=== PATIENT | female | born 1985 | race Caucasian/White ===

== ENCOUNTER 2016-09-14 08:24 | Day surgery (SDC) | payer MEDICAID ==
[~2016-09-14 08:24] MED LIST: PROPOFOL INJ 200 MG/20 ML VIAL IV ONE
[2016-09-14 09:46] VITALS: BP 99/75
--- NOTE | 2016-09-14 12:43 | Operative Report ---
Operative Report DATE OF SURGERY: 09/14/16 Operative Report: The risks, benefits and alternatives of the procedure including risks of bleeding, perforation requiring surgery are explained to the patient detail and informed consent was obtained. Patient was taken back to the endoscopy suite and placed in the left, lateral decubital position. Timeout was called. A rectal examination was done. An Olympus video scope was inserted into the patient's rectum. The scope was then carefully guided all the way to the cecum. The cecum was identified by the usual anatomical landmarks of the ileocecal valve as well as the appendiceal office. Photodocumentation is obtained. Prep is good. The scope was then sequentially pulled back via the various segments of the colon including the ascending colon, hepatic flexure, transverse colon, splenic flexure, descending colon and finding to the rectosigmoid portions of the colon. Retroflexion maneuver was performed. PREOPERATIVE DIAGNOSIS: Strong family history of colon cancer; colon cancer in mother and grandmother. One relative under the age of 50. POSTOPERATIVE DIAGNOSIS: Mild right-sided inflammation status post biopsy. Could have been better ,would perform surveillance next year. OPERATION: Colonoscopy with biopsy SURGEON: BELINDA ELKINS ANESTHESIA: LMAC TISSUE REMOVED OR ALTERED: colon Specimen of pain rule out microscopic, collagenous, lymphocytic colitis. COMPLICATIONS: None. ESTIMATED BLOOD LOSS: None. INTRAOPERATIVE FINDINGS: No masses, AVMs, diverticulosis noted. Mild internal hemorrhoids. PROCEDURE: Patient tolerated the procedure well. No immediate postprocedure complications are noted. Patient discharged in good condition. Discharge date 09/14/2016. Discharge diet: Regular. Discharge activity: Regular. 2-3 week follow-up to discuss findings. Surveillance colonoscopy next year. We will await biopsy. Patient is instructed to call the office or proceed to the emergency room should there be any further problems or questions.
== END 2016-09-14 09:40 | disposition home or self-care (01) ==
LOC: END 08:24
PROVIDERS: ATTEND Internal Medicine Gastroenterology
PROC: 0DBF8ZX Excision of Right Large Intestine, Via Natural or Artificial Opening Endoscopic, Diagnostic (ICD-10-PCS; principal; 2016-09-14 09:30)
DX: Z80.0 Family history of malignant neoplasm of digestive organs (principal); K52.9 Noninfective gastroenteritis and colitis, unspecified; F17.210 Nicotine dependence, cigarettes, uncomplicated; Z79.899 Other long term (current) drug therapy; Z79.1 Long term (current) use of non-steroidal anti-inflammatories (NSAID)
CPT/HCPCS: 45380; 88305 ×2; J2704; 810

== ENCOUNTER 2017-03-26 17:31 | Emergency (ER) | payer MEDICAID ==
[2017-03-26] MEDS ORDERED: IBUPROFEN 600 MG TABLET PO ONE (17:50)
--- NOTE | 2017-03-26 18:12 | RADIOLOGY REPORT (SQ) ---
EXAM DESCRIPTION: ANKLE RIGHT COMPLETE COMPLETED DATE/TIME: 03/26/2017 6:02 pm REASON FOR STUDY: pain and injury COMPARISON: None. NUMBER OF VIEWS: Three views. TECHNIQUE: AP, lateral, and oblique radiographic images acquired of the right ankle. LIMITATIONS: None. FINDINGS: MINERALIZATION: Normal. BONES: No acute fracture or dislocation. No worrisome bone lesions. JOINTS: No effusions. SOFT TISSUES: No soft tissue swelling. No foreign body. OTHER: No other significant finding. IMPRESSION: NO RADIOGRAPHIC EVIDENCE OF ACUTE INJURY. TECHNICAL DOCUMENTATION: JOB ID: [id number] [place]-72 2010 [employer]- All Rights Reserved
--- NOTE | 2017-03-26 18:14 | RADIOLOGY REPORT (SQ) ---
EXAM DESCRIPTION: FOOT RIGHT COMPLETE COMPLETED DATE/TIME: 03/26/2017 6:02 pm REASON FOR STUDY: pain and injury COMPARISON: None. NUMBER OF VIEWS: Three views. TECHNIQUE: AP, lateral and oblique radiographic images acquired of the right foot. LIMITATIONS: None. FINDINGS: MINERALIZATION: Normal. BONES: No acute fracture or dislocation. No worrisome bone lesions. JOINTS: No effusions. SOFT TISSUES: No soft tissue swelling. No foreign body. OTHER: No other significant finding. IMPRESSION: NO RADIOGRAPHIC EVIDENCE OF ACUTE INJURY. TECHNICAL DOCUMENTATION: JOB ID: [id number] [place]-72 2010 [employer]- All Rights Reserved
--- NOTE | 2017-03-26 18:20 | ER Document Report ---
ED Extremity Problem, Lower - General Chief Complaint: Ankle Injury Stated Complaint: RIGHT FOOT INJURY Time Seen by Provider: 03/26/17 17:47 Mode of Arrival: Wheelchair Information source: Patient Notes: 31-year-old female presents to ED for complaint of pain to the right ankle. She states she was working in her yard but not been activity seen when she stepped into a hole twisting her ankle causing her pain whenever she tries to put her foot onto the floor. She states she smokes but does not drink or do any kind of drugs. She states she does work she lives with her . TRAVEL OUTSIDE OF THE [place] IN LAST 30 DAYS: No - HPI Patient complains to provider of: Injury, Pain. No: Swelling Location: Ankle Occurred: Yesterday Where: Home, Outdoors Onset/Duration: Gradual Quality of pain: Sharp, Throbbing Severity: Moderate Pain Level: 3 Context: Twisted, Wearing shoes Recent injury: Yes Associated symptoms: Painful ambulation Exacerbated by: Movement, Walking Relieved by: Nothing - Related Data Allergies/Adverse Reactions: tramadol [Tramadol] Allergy (Intermediate, Verified 03/26/17 17:32) Hives Past Medical History - General Information source: Patient - Social History Smoking Status: Current Every Day Smoker Cigarette use (# per day): Yes Chew tobacco use (# tins/day): No Smoking Education Provided: Yes - 3 minutes Frequency of alcohol use: None Drug Abuse: None Lives with: Family Family History: Reviewed & Not Pertinent Patient has suicidal ideation: No Patient has homicidal ideation: No - Past Medical History Cardiac Medical History: Reports: None Pulmonary Medical History: Reports: Hx Bronchitis EENT Medical History: Reports: None Neurological Medical History: Reports: Hx Migraine Endocrine Medical History: Reports: None Renal/ Medical History: Reports: None Malignancy Medical History: Reports: None GI Medical History: Reports: None Musculoskeltal Medical History: Reports None Skin Medical History: Reports None Psychiatric Medical History: Reports: None Traumatic Medical History: Reports: None Infectious Medical History: Reports: None Surgical Hx: Negative Past Surgical History: Reports: None - Immunizations Immunizations up to date: Yes Hx Diphtheria, Pertussis, Tetanus Vaccination: Yes Review of Systems - Review of Systems Constitutional: No symptoms reported EENT: No symptoms reported Cardiovascular: No symptoms reported Respiratory: No symptoms reported Gastrointestinal: No symptoms reported Genitourinary: No symptoms reported Female Genitourinary: No symptoms reported Musculoskeletal: Joint pain Skin: No symptoms reported Hematologic/Lymphatic: No symptoms reported Neurological/Psychological: No symptoms reported Physical Exam - Vital signs Vitals: Temp Pulse BP Pulse Ox 98.6 F 83 119/69 100 03/26/17 17:36 03/26/17 17:36 03/26/17 17:36 03/26/17 17:36 Course - Re-evaluation Re-evalutation: 03/26/17 20:07 X-ray discussed with patient and written report of the x-ray given the patient to follow-up with orthopedics. Jarret wrap applied to the ankle and patient was treated with ibuprofen and given a prescription for ibuprofen. Patient is instruction on elevation and ice of her ankle. - Vital Signs Vital signs: Temp Pulse Resp BP Pulse Ox 97.9 F 60 20 95/77 L 95 03/26/17 19:04 03/26/17 19:04 03/26/17 19:04 03/26/17 19:04 03/26/17 19:04 - Diagnostic Test Radiology reviewed: Image reviewed, Reports reviewed Procedures - Immobilization Right Ankle Time completed: 19:00 Pre-Proc Neuro Vasc Exam: Normal Immobilizer type: Jarret wrap Performed by: PCT Post-Proc Neuro Vasc Exam: Normal Alignment checked and good: Yes Discharge - Discharge Clinical Impression: Right ankle sprain Qualifiers: Encounter type: initial encounter Involved ligament of ankle: unspecified ligament Qualified Code(s): S93.401A - Sprain of unspecified ligament of right ankle, initial encounter Condition: Stable Disposition: HOME, SELF-CARE Additional Instructions: SPRAINED ANKLE: Your sprained ankle results from stretching or tearing of the ligaments which support the ankle. This usually results from twisting the foot inward and under. The ligaments will require time and protection in order to heal properly. Many ankle sprains are quite disabling, and should be taken seriously. The usual treatment for an ankle sprain is cold packs; protection with tape , splints, or wraps; elevation; and staying off the ankle for at least a day. As the ankle improves, you can walk IF it's not painful to bear weight. Sports are best postponed until healing is complete. More serious sprains usually require strengthening exercises after early healing. Your physician has assessed the seriousness of the ligament injury to your ankle. However, the treatment may change, depending on how your ankle progresses. If further exams were recommended, it is important that you follow through. Call the doctor if your foot becomes numb, painful, or severely swollen. JARRET WRAP: A compression dressing (jarret wrap) has been placed. This helps hold the area still. It limits swelling and internal bleeding. The wrap should be comfortably snug -- not tight. You should feel a sense of pressure, but not severe pain under the wrap. Unless the physician tells you otherwise, you can adjust the wrap for comfort. If the wrap causes symptoms suggesting it's too tight -- uncomfortable pressure, swelling or discoloration beyond the wrap, numbness, or severe pain - - you must loosen the wrap. If these symptoms don't resolve promptly, return for re-evaluation. USE OF CRUTCHES: The doctor has recommended that you not bear weight at this time. You will need to use crutches. Adjust the crutches so the tops come to about two inches under the armpit while you are standing upright. Use your hands -- not your armpits -- to support your weight. To get into a chair, support yourself with one crutch on the injured side. Hold the chair with the other hand, then lower yourself while putting all your weight on the good leg. Going up stairs is `good leg up, step up, then bring up crutches and bad leg.' Down stairs is `bad leg and crutches down, then bring good leg down.' If you develop numbness or swelling in an arm or hand, you are using the crutches incorrectly. Return if you are having any problems with the crutches. ICE & ELEVATION: Apply ice packs frequently against the painful area. Many different schedules are recommended, such as "20 minutes on, 20 minutes off" or "one hour ice, two hours rest." If you need to work, you may need to go longer between ice treatments. You should plan to have the area ice packed AT LEAST one- fourth of the time. The ice should be applied over the wrap, tape, or splint, or over a layer of cloth -- not directly against the skin. Some ice bags have a built-in cloth and can be put directly on the skin. Your injured part should be elevated as much as possible over the next 48 hours. Try to keep the injury above the level of the heart. Avoid use of the injured area. Elevation and rest will decrease the swelling. USE OF [id number] IBUPROFEN: Ibuprofen (Advil, Nuprin, Medipren, Motrin IB) is a medication for fever and pain control. In addition, it has anti- inflammatory effects which may be beneficial, especially in the treatment of injuries. It's best to take ibuprofen with food. Persons with ulcer disease or allergy to aspirin should notify their physician of this before taking ibuprofen. Ibuprofen can be given every four to six hours, for a total of four doses daily. Age Pain or fever dose Antiinflammatory dose 6-8 yr 200 mg (1 tab) 200 mg (1 tab) 9-11 yr 200 mg (1 tab) 200-400 mg (1-2 tab) 11-14 yr 200-400 mg (1-2 tab) 400 mg (2 tab) 15-adult 400 mg (2 tab) 600 mg (3 tab) FOLLOW-UP CARE: If you have been referred to a physician for follow-up care, call the physician s office for an appointment as you were instructed or within the next two days. If you experience worsening or a significant change in your symptoms, notify the physician immediately or return to the Emergency Department at any time for re-evaluation. Prescriptions: Ibuprofen 600 mg PO Q8HP PRN #20 tablet PRN Reason: Forms: Smoking Cessation Education, Return to Work Referrals: LUKE BAIG PA-C [Primary Care Provider] - Follow up as needed TORY MIRANDA DO [ACTIVE STAFF] - Follow up as needed
[2017-03-26 19:05] VITALS: BP 95/77
== END 2017-03-26 19:04 | disposition home or self-care (01) ==
LOC: ER 17:31
DX: S93.401A Sprain of unspecified ligament of right ankle, initial encounter (principal); M25.571 Pain in right ankle and joints of right foot; X50.1XXA Overexertion from prolonged static or awkward postures, initial encounter
CPT/HCPCS: 99283; 73610; 73630; J3490

== ENCOUNTER 2017-07-17 16:15 | Emergency (ER) | payer MEDICAID ==
[2017-07-17] MEDS ORDERED: CLINDAMYCIN HCL 150 MG CAPSULE PO ONE (17:13)
[2017-07-17] MEDS ORDERED: HYDROCODONE/ACETAMINOPHEN 5-325 MG TABLET PO ONE (17:13)
--- NOTE | 2017-07-17 17:18 | ER Document Report ---
ED ENT - General Chief Complaint: Facial Swelling Stated Complaint: SWOLLEN MOUTH Time Seen by Provider: 07/17/17 16:42 Mode of Arrival: Ambulatory Information source: Patient Notes: 32-year-old female patient with right face pain and swelling since yesterday. She has known dental disease. There is no fever. She has a long history of poor dentition and dental caries and ER visits for pain related issues. TRAVEL OUTSIDE OF THE [place] IN LAST 30 DAYS: No - Related Data Allergies/Adverse Reactions: tramadol [Tramadol] Allergy (Intermediate, Verified 07/17/17 16:47) Hives Past Medical History - General Information source: POA - Power of Medical Donation Professional, [facility] Records - Social History Smoking Status: Current Every Day Smoker Cigarette use (# per day): Yes - /12 PPD Chew tobacco use (# tins/day): No Smoking Education Provided: Yes - 3 minutes spent on smoking cessation counseling Frequency of alcohol use: None Drug Abuse: None Occupation: Unemployed Lives with: Family, Spouse/Significant other Family History: Reviewed & Not Pertinent Pulmonary Medical History: Reports: Hx Bronchitis Neurological Medical History: Reports: Hx Migraine Surgical Hx: Negative - Immunizations Immunizations up to date: Yes Hx Diphtheria, Pertussis, Tetanus Vaccination: Yes Review of Systems - Review of Systems Constitutional: No symptoms reported EENT: Dental problem Cardiovascular: No symptoms reported Respiratory: No symptoms reported Gastrointestinal: No symptoms reported Genitourinary: No symptoms reported Female Genitourinary: Last menstrual period - May 2017, Musculoskeletal: No symptoms reported Skin: No symptoms reported Hematologic/Lymphatic: No symptoms reported Neurological/Psychological: No symptoms reported Physical Exam - Vital signs Interpretation: Normal - General General appearance: Appears well, Alert In distress: Mild - HEENT Head: Normocephalic, Atraumatic Eyes: Normal Pupils: PERRL Mouth/Lips: Other - Severe dental decay. Right lower second molar is broken off and tender to touch. There is gum edema without obvious abscess seen. There is tender swelling over the right proximal mandible. - Respiratory Respiratory status: No respiratory distress Breath sounds: Rhonchi - Cardiovascular Rhythm: Regular - Abdominal Inspection: Normal - Back Back: Normal - Extremities General upper extremity: Normal inspection General lower extremity: Normal inspection - Neurological Neuro grossly intact: Yes - Psychological Associated symptoms: Normal affect, Normal mood - Skin Skin Temperature: Warm Skin Moisture: Dry Skin Color: Normal Course - Re-evaluation Re-evalutation: 07/17/17 17:43 Review of the [facility] shows the last time she filled a narcotic prescription was in 2013, and that was from a local oral surgeon. Discharge - Discharge Clinical Impression: Infected dental caries Condition: Stable Disposition: HOME, SELF-CARE Instructions: Dentist Additional Instructions: Dental Infection or Abscess: You have an infection, perhaps an abscess (pus formation) of the gum around one of your teeth, which is probably decayed. If there is an abscess, it may drain on its own or it may need to be opened or lanced. Severe swelling or drainage around a tooth usually means a deep dental abscess which usually requires evaluation and treatment by a dentist or oral surgeon. Antibiotics may be prescribed while awaiting dental treatment. If you develop high fever with chills, worsening pain, or increasing swelling in the area, see a dentist or oral surgeon immediately or return to the Emergency Department immediately. Take medications as prescribed. Take ibuprofen 600 mg every 8 hours. Use warm soaks to your jaw. Follow-up with a local dentist this week. RETURN TO THE EMERGENCY ROOM IF ANY NEW OR WORSENING SYMPTOMS. Prescriptions: Clindamycin HCl 300 mg PO QID #28 capsule Hydrocodone/Acetaminophen [Hydrocodon-Acetaminophen 5-325] 1 each PO ASDIR PRN # 12 tablet PRN Reason: Referrals: LUKE BAIG PA-C [Primary Care Provider] - Follow up as needed
== END 2017-07-17 17:39 | disposition home or self-care (01) ==
LOC: ER 16:15
DX: K02.9 Dental caries, unspecified (principal); K04.7 Periapical abscess without sinus; R22.0 Localized swelling, mass and lump, head; R51 Headache; F17.210 Nicotine dependence, cigarettes, uncomplicated
CPT/HCPCS: 99406; 99283; J3490

== ENCOUNTER 2017-11-23 19:14 | Emergency (ER) | payer OTHER, MEDICAID ==
[2017-11-23 19:41] VITALS: BP 118/79
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
[2017-11-23] MEDS ORDERED: OXYCODONE-ACETAMINOPHEN 5-325 MG TABLET PO ONE (21:19)
[2017-11-23 22:11] LABS: ABSOLUTE LYMPHOCYTES (AUTO) 1.3 10^3/uL (0.5-4.7); ABSOLUTE MONOCYTES (AUTO) 0.7 10^3/uL (0.1-1.4); ABSOLUTE NEUT (AUTO) 14.7 10^3/uL (1.7-8.2); BASOPHILS % (AUTO) 0.2 % (0-2); EOSINOPHILS % (AUTO) 0.1 % (0-6); HEMATOCRIT 29.2 % (36.0-47.0); HEMOGLOBIN 9.9 g/dL (12.0-15.5); LYMPHOCYTES % (AUTO) 7.6 % (13-45); MEAN CORPUSCULAR HEMOGLOBIN 28.9 pg (27.0-33.4); MEAN CORPUSCULAR VOLUME 85 fl (80-97); MONOCYTES % (AUTO) 4.3 % (3-13); PLATELET COUNT 227 10^3/uL (150-450); RED BLOOD COUNT 3.43 10^6/uL (3.72-5.28); SEGMENTED NEUTROPHILS % (AUTO) 87.8 % (42-78); TOTAL CELLS COUNTED % (AUTO) 100 %; WHITE BLOOD COUNT 16.7 10^3/uL (4.0-10.5)
[2017-11-23 22:18] LABS: INTERNATIONAL RATION (INR) 0.99; PARTIAL THROMBOPLASTIN TIME 25.2 SEC (23.5-35.8); PROTHROMBIN TIME 13.6 SEC (11.4-15.4)
[2017-11-23 22:36] LABS: ALANINE AMINOTRANSFERASE 23 U/L (9-52); ALBUMIN 3.3 g/dL (3.5-5.0); ALKALINE PHOSPHATASE 142 U/L (38-126); ANION GAP 11 (5-19); ASPARTATE AMINO TRANSFERASE 13 U/L (14-36); BILIRUBIN,DIRECT 0.2 mg/dL (0.0-0.4); BILIRUBIN,TOTAL 0.3 mg/dL (0.2-1.3); BLOOD UREA NITROGEN 6 mg/dL (7-20); CALCIUM 8.9 mg/dL (8.4-10.2); CARBON DIOXIDE 18 mmol/L (22-30); CHLORIDE 110 mmol/L (98-107); GLUCOSE 101 mg/dL (75-110); POTASSIUM 3.7 mmol/L (3.6-5.0); SODIUM 138.8 mmol/L (137-145); TOTAL PROTEIN 6.2 g/dL (6.3-8.2)
[2017-11-23 23:35] LABS: APPEARANCE,URINE CLEAR; BILIRUBIN,URINE NEGATIVE (NEGATIVE); COLOR,URINE YELLOW; GLUCOSE, URINE NEGATIVE (NEGATIVE); KETONES,URINE 20 mg/dL (NEGATIVE); LEUKOCYTE ESTERASE,URINE TRACE (NEGATIVE); NITRITE,URINE NEGATIVE (NEGATIVE); PROTEIN,URINE 100 mg/dL (NEGATIVE); URINE SPECIFIC GRAVITY 1.013; UROBILINOGEN,URINE NEGATIVE mg/dL (<2.0)
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
== END 2017-11-24 01:13 | disposition home or self-care (01) ==
LOC: ER 19:14
DX: S63.91XA Sprain of unspecified part of right wrist and hand, initial encounter (principal); M25.531 Pain in right wrist; V87.7XXA Person injured in collision between other specified motor vehicles (traffic), initial encounter
CPT/HCPCS: 36415; 76805; 80053; 81001; 85025; 85610; 85730; 99284

== ENCOUNTER 2018-01-27 16:36 | Outpatient (CLI) | payer MEDICAID ==
[2018-01-27 17:21] LABS: APPEARANCE,URINE SLIGHTLY-CLOUDY; BILIRUBIN,URINE NEGATIVE (NEGATIVE); COLOR,URINE YELLOW; GLUCOSE, URINE NEGATIVE (NEGATIVE); KETONES,URINE NEGATIVE (NEGATIVE); LEUKOCYTE ESTERASE,URINE LARGE (NEGATIVE); NITRITE,URINE NEGATIVE (NEGATIVE); PROTEIN,URINE 30 mg/dL (NEGATIVE); URINE SPECIFIC GRAVITY 1.012; UROBILINOGEN,URINE NEGATIVE mg/dL (<2.0)
[2018-01-27] MEDS: RINGERS SOLUTION,LACTATED 1,000 ML IV PRN ×2 (17:30→18:31)
[2018-01-27 17:32] LABS: URINE AMPHETAMINES SCREEN NEGATIVE; URINE BARBITURATES SCREEN NEGATIVE; URINE BENZODIAZEPINES SCREEN NEGATIVE; URINE COCAINE SCREEN NEGATIVE; URINE MARIJUANA (THC) SCREEN NEGATIVE; URINE PHENCYCLIDINE SCREEN NEGATIVE
[2018-01-27 17:39] LABS: URINE METHADONE SCREEN UNCONFIRMED POSITIVE
--- NOTE | 2018-01-27 17:40 | L&D Progress Notes ---
PROGRESS NOTES Datetime Report Generated by CPN: 01/27/2018 17:40 PROGRESS NOTE Impression Other: Low FABIANA Procedures- Other: Monitor/Actin Prom Plan Other: Repeat FABIANA Informed Consent Obtained: Risks, Benefits and Alternatives Discussed Vital Signs : Reviewed; Within Normal Limits Comment: Pt sent to L_D secondary to FABIANA 1.5 cm and Positive Nitrizine. Actin Prom negative. Bedside US showed very low FABIANA. Fetus in Breech position. Pt adamant about not having a C/S today. She stated that she had a her other (2) children naturally. I explained to her that it is very unlikely that the fetus will convert to a cephalic position without adequate amniotic fluid. Her NST is reactive and she is archie irregularly. I will give her some IV fluids and repeat the FABIANA. FETUS A FHR - Baseline: 130s Monitoring: External US Variability: Moderate 6-25bpm Accelerations: 15X15 Decelerations: None FHR Category: Category I : 36.0 SIGNATURE SIGNATURE: [id number] Signature: with User ID: [email or web address]
--- NOTE | 2018-01-28 00:16 | RADIOLOGY REPORT (SQ) ---
ULTRASOUND OBSTETRICS CLINICAL HISTORY: Repeat FABIANA. History of low FABIANA. COMPLETED DATE/TME: 01/27/2018 23:30 COMPARISON: 11/23/2017 TECHNIQUE: Transabdominal ultrasound of the maternal pelvis for evaluation of the fetus was done. FINDINGS: There is a single viable intrauterine gestation in breech position. A heart rate of 139 beats/minute is noted. The average ultrasound gestational age is 35 weeks and three days. Expected date of confinement is 02/28/2018. biometry is as follows: Biparietal diameter, 8.53 cm, 34 weeks and three days Head circumference, 31.53 cm, 35 weeks and three days Abdominal circumference, 31.81 cm, 35 weeks and five days Femur length, 7.06 cm, 36 weeks and one days Estimated weight is 2737 g +/- 405 g (six lb one oz +/- 14 oz) placing the patient at the 41 percentile for estimated weight. The amniotic fluid index is 1.2 centimeters, suggestive of severe oligohydramnios No detailed evaluation of the anatomy was done The placenta is fundal in position, grade two and without any evidence of placenta previa/placenta abruption. The maternal cervical length is 3.9 centimeters. Internal os of the cervix is closed. IMPRESSION: The amniotic fluid index is 1.2 centimeters, suggestive of severe oligohydramnios. Single viable intrauterine gestation in breech presentation with intact fundal placenta
--- NOTE | 2018-01-28 00:40 | L&D Progress Notes ---
PROGRESS NOTES Datetime Report Generated by CPN: 01/28/2018 00:40 PROGRESS NOTE Impression Other: Oligohydramnios Procedures- Other: Monitor Plan Other: IV fluids, rest, repeat FABIANA Vital Signs : Reviewed; Within Normal Limits Comment: Pt here since approx 1700 secondary to oligohydramnios. She was sent from the office with an FABIANA 1.5 cm. Fetus in Breech position. NST reactive. Pt given IV fluids and repeat FABIANA 4 hrs later shows FABIANA 1.2 cm. Pt states that she will not undergo a C/S at this time. She states that she has good movement. She would like to have a vaginal delivery like her others. I explained to her that her baby can and the likelihood of the baby turning is very low. She states that she understands this and that she will keep her appt on Wednesday. If she has to have a C/S after the appt, she will. Pt encouraged/instructed to return if movement decreases. Pt signed the AMA form. FETUS A FHR - Baseline: 120s Monitoring: External US Accelerations: 15X15 Decelerations: None FHR Category: Category I : 36.1 FETUS C SIGNATURE: [id number] Signature: with User ID: [email or web address]
== END 2018-01-28 00:39 | disposition home or self-care (01) ==
LOC: LC 16:36
PROVIDERS: ATTEND Obstetrics & Gynecology
PROC: 4A1HXCZ Monitoring of Products of Conception, Cardiac Rate, External Approach (ICD-10-PCS; principal; 2018-01-27)
DX: O41.03X0 Oligohydramnios, third trimester, not applicable or unspecified (principal); Z3A.36 36 weeks gestation of pregnancy
CPT/HCPCS: 36415; 76815; 80307; 81001; 84112

== ENCOUNTER 2018-02-02 19:03 | Inpatient (IN) | payer MEDICAID ==
--- NOTE | 2018-02-02 20:12 | Admission Physical ---
Datetime Report Generated by CPN: 02/02/2018 20:11 CURRENT ADMISSION Chief Complaint: Evaluation Indication for Induction: Oligohydramnios Indication for Induction- Other: Breech Admit Impression : , Intrauterine ; Primary Section; Observation/Evaluation Admit Impression- Other: Severe oligohydramnios Admit Plan: Admit to Unit; Initiate Section Protocol ALLERGIES Medication Allergies: Yes Medication Allergies: tramadol/MO/Hives (01/27/2018) Latex: No Latex Allergies OBSTETRICAL HISTORY EDC: 02/24/2018 00:00 : 5 Para: 4 Term: 4 : 0 SAB: 0 IAB: 0 Ectopic: 0 Livin Cesareans: 0 VBACs: 0 Multiple Births: 0 SEE RECORDS Alcohol: No Marijuana : No Cocaine: No Other Illicit Drugs: No Cigarettes: Current Everyday Smoker. [id number] Cigarette Frequency: 5 - 10 per day PHYSICAL EXAM General: Normal HEENT: Normal Neurologic: Normal Thyroid: Normal Heart: Normal Lungs: Normal Breast: Normal Back: Normal Abdomen: Normal Genitourinary Exam: Normal Extremities: Normal DTRs: Normal Pelvic Type: Adequate Vital Signs: Reviewed; Within Normal Limits FETUS A EGA: 36.6 Monitoring: External US FHR- Baseline: 120s Variability: Moderate 6-25bpm Accelerations: 15X15 FHR Category: Category I Admit Comment: Pt here for monitoring and Primary C/S tomorrow secondary to severe olighydramnios and Breech position. PLANS FOR LABOR AND DELIVERY Labor and Delivery: None Feeding Preference: Both Benefit of Breast Feed Discussed: Yes Circumcision: Yes INFORMED CONSENT Informed Consent Obtained: Risks, Benefits and Alternatives Discussed Signature: with User ID: [email or web address]
[2018-02-02 20:39] LABS: ABSOLUTE BASOPHILS # (AUTO) 0.1 10^3/uL (0.0-0.2); ABSOLUTE LYMPHOCYTES (AUTO) 1.8 10^3/uL (0.5-4.7); ABSOLUTE MONOCYTES (AUTO) 0.8 10^3/uL (0.1-1.4); BASOPHILS % (AUTO) 0.6 % (0-2); EOSINOPHILS % (AUTO) 0.1 % (0-6); HEMATOCRIT 33.8 % (36.0-47.0); HEMOGLOBIN 11.5 g/dL (12.0-15.5); LYMPHOCYTES % (AUTO) 18.4 % (13-45); MEAN CORPUSCULAR HEMOGLOBIN 28.7 pg (27.0-33.4); MEAN CORPUSCULAR VOLUME 84 fl (80-97); MONOCYTES % (AUTO) 8.5 % (3-13); PLATELET COUNT 308 10^3/uL (150-450); RED CELL DISTRIBUTION WIDTH 14.4 % (11.5-14.0); SEGMENTED NEUTROPHILS % (AUTO) 72.4 % (42-78); TOTAL CELLS COUNTED % (AUTO) 100 %; WHITE BLOOD COUNT 9.6 10^3/uL (4.0-10.5)
[2018-02-02] MEDS ORDERED: RINGERS SOLUTION,LACTATED 1,000 ML IV ONE (20:50)
[2018-02-02] MEDS ORDERED: RINGERS SOLUTION,LACTATED 1,000 ML IV PRN (20:50)
[2018-02-02] MEDS ORDERED: MAG HYDROX/AL HYDROX/SIMETH SUSP 30 ML UDCUP PO PRN (20:59)
[2018-02-02] MEDS ORDERED: MAG HYDROX/AL HYDROX/SIMETH SUSP 30 ML UDCUP ONE (21:00)
[2018-02-02 23:39] LABS: APPEARANCE,URINE SLIGHTLY-CLOUDY; BILIRUBIN,URINE NEGATIVE (NEGATIVE); COLOR,URINE YELLOW; GLUCOSE, URINE NEGATIVE (NEGATIVE); KETONES,URINE NEGATIVE (NEGATIVE); LEUKOCYTE ESTERASE,URINE SMALL (NEGATIVE); NITRITE,URINE NEGATIVE (NEGATIVE); PROTEIN,URINE 100 mg/dL (NEGATIVE); URINE SPECIFIC GRAVITY 1.024; UROBILINOGEN,URINE NEGATIVE mg/dL (<2.0)
[2018-02-02 23:56] LABS: URINE BARBITURATES SCREEN NEGATIVE; URINE BENZODIAZEPINES SCREEN NEGATIVE; URINE MARIJUANA (THC) SCREEN NEGATIVE; URINE PHENCYCLIDINE SCREEN NEGATIVE
[2018-02-03 00:07] LABS: URINE COCAINE SCREEN UNCONFIRMED POSITIVE; URINE METHADONE SCREEN UNCONFIRMED POSITIVE
[2018-02-03] MEDS ORDERED: CITRIC ACID/SODIUM CITRATE ORAL SOLN 15 ML UDCUP ONE (07:45)
[2018-02-03] MEDS ORDERED: CEFAZOLIN 1 GM/D5W RTU 1 GM/50 ML RTUPB IV ONE ×2 (07:45→08:47)
[2018-02-03] MEDS ORDERED: OXYTOCIN 10 UNIT/ML VIAL ONE (09:08)
[2018-02-03] MEDS ORDERED: KETOROLAC TROMETHAMINE INJ/PF 30 MG/1 ML SDV ONE (09:08)
[2018-02-03] MEDS ORDERED: FENTANYL CITRATE INJ/PF 100 MCG/2 ML AMPUL ONE (09:08)
[2018-02-03] MEDS ORDERED: CARBOPROST TROMETHAMINE INJ 250 MCG/1 ML AMPULE ONE (09:09)
[2018-02-03] MEDS ORDERED: OXYTOCIN/NORMAL SALINE 20 UNIT/1,000 ML RTUINJ ONE (09:09)
[2018-02-03] MEDS ORDERED: MIDAZOLAM 2 MG/2 ML INJ ONE (09:09)
[2018-02-03] MEDS ORDERED: ACETAMINOPHEN 1,000 MG/100 ML RTUPB IV ONE (09:09)
[2018-02-03] MEDS ORDERED: ONDANSETRON HCL INJ/PF 4 MG/2 ML SDV ONE (09:09)
[2018-02-03] MEDS ORDERED: METHYLERGONOVINE MALEATE INJ/PF 0.2 MG/1 ML AMPULE ONE (09:10)
[2018-02-03] MEDS ORDERED: BUPIVACAINE HCL/DEX-WATER/PF 15 MG/2 ML AMPULE ONE (09:10)
[2018-02-03] MEDS ORDERED: EPHEDRINE SULFATE INJ 50 MG/1 ML AMPULE ONE (09:10)
[2018-02-03] MEDS ORDERED: FENTANYL CITRATE INJ/PF 100 MCG/2 ML AMPUL IV PRN ×3 (09:42)
[2018-02-03] MEDS ORDERED: OXYCODONE-ACETAMINOPHEN 5-325 MG TABLET PO PRN ×3 (09:42→09:45)
[2018-02-03] MEDS ORDERED: MORPHINE SULFATE 10 MG/ML INJ IV PRN (09:42)
[2018-02-03] MEDS ORDERED: DIPHENHYDRAMINE HCL 50 MG/ML VIAL IV PRN (09:42)
[2018-02-03] MEDS ORDERED: ONDANSETRON HCL INJ/PF 4 MG/2 ML SDV IV PRN (09:42)
[2018-02-03] MEDS ORDERED: MEPERIDINE HCL/PF INJ 25 MG/1 ML DISP.SYRIN IV PRN (09:42)
[2018-02-03] MEDS ORDERED: PROMETHAZINE HCL INJ 25 MG/1 ML VIAL IV PRN ×3 (09:42→09:45)
[2018-02-03] MEDS ORDERED: ACETAMINOPHEN 325 MG TABLET PO PRN (09:45)
[2018-02-03] MEDS ORDERED: ACETAMINOPHEN 1,000 MG/100 ML RTUPB IV PRN (09:45)
[2018-02-03] MEDS ORDERED: DIPH/PERTUSS(ACELL)/TETANUS VAC/PF 0.5 ML SYR (>=10YO) IM PRN (09:45)
[2018-02-03] MEDS ORDERED: SIMETHICONE 80 MG TAB.CHEW PO PRN (09:45)
[2018-02-03] MEDS ORDERED: OXYTOCIN/NORMAL SALINE 20 UNIT/1,000 ML RTUINJ IV PRN (09:45)
[2018-02-03] MEDS ORDERED: MORPHINE SULFATE 10 MG/ML INJ IM PRN (09:45)
[2018-02-03] MEDS ORDERED: MEASLES,MUMPS&RUBELLA VACC/PF 0.5 ML VIAL SUBCUT PRN (09:45)
--- NOTE | 2018-02-03 09:48 | PDOC DELIVERY SUMMARY ---
Delivery Summary - Maternal Risk Factors: Oligohydramnios Ruptured Membranes: AROM Fluids: Clear - Delivery Labor: Not In Labor Presentation: Breech Support Person Present: Yes : Scheduled, Primary Nuchal Cord: No - Medications Type of Anesthesia:: Spinal
--- NOTE | 2018-02-03 09:56 | OPERATIVE REPORT E ---
Operative Report NAME: YUSUF OLIVO : 1985 AGE: 32Y DATE OF SURGERY: 02/03/2018 ROOM: LR200 PREOPERATIVE DIAGNOSIS: IUP at 36 weeks with oligohydramnios in breech presentation. POSTOPERATIVE DIAGNOSIS: IUP at 36 weeks with oligohydramnios in breech presentation. PROCEDURE: A primary low transverse with delivery of viable male. Apgars of 9 and 9. Weight 6 pounds 1 ounce. SURGEON: Yamel MOREIRA M.D. ESTIMATED BLOOD LOSS: Less than 600 mL. TISSUE REMOVED OR ALTERED: Placenta. ANESTHESIA: Spinal. DESCRIPTION OF PROCEDURE: The patient was placed in a supine position, rolled on her right side, prepped and draped in sterile fashion. A Pfannenstiel incision was made. The incision extended through the subcutaneous tissue with sharp dissection. Fascia was sharply divided. Rectus muscle bluntly and sharply divided. Parietal peritoneum was entered with sharp dissection. The uterus nicked in midline and extended bilaterally. was then delivered through the uterine abdominal incision. Nose and mouth suctioned with bulb syringe. Cord was clamped. was passed from the table. Placenta was manually extracted. Uterus closed in 2 layers using 0 Vicryl first a running stitch and a second Lembert stitch imbricating the first layer. There was a small amount of bleeding noticed in 2 areas controlled with [id number] sutures of 0 Vicryl. Hemostasis was noted. Fascia was closed with 0 Vicryl, skin with subcu absorbable sam. The went to the nursery in good condition. The patient's urine remained clear throughout the procedure and was taken to recovery room in good condition. DICTATING PHYSICIAN: Yamel MOREIRA M.D. [id number] PHY#: [id number] ID: [id number] JOB#: [id number] ACCT: [id number] cc:Yamel MOREIRA M.D. >
--- NOTE | 2018-02-03 10:41 | Warning Signs in Babies ---
VOD Warning Signs Datetime Report Generated by [facility]: 02/03/2018 10:41 VOD#608 -Warning Signs in Babies: Needs to be viewed. (01/27/2018 17:11:Devyn Farooq RN)
[2018-02-03] MEDS ORDERED: MORPHINE SULFATE 10 MG/ML INJ ONE (10:45)
[2018-02-03] MEDS: OXYCODONE-ACETAMINOPHEN 5-325 MG TABLET PO PRN (13:01)
[2018-02-03] MEDS ORDERED: KETOROLAC TROMETHAMINE INJ/PF 30 MG/1 ML SDV IV SCH (14:00)
[2018-02-03] MEDS: DOCUSATE SODIUM 100 MG CAPSULE PO SCH (17:45)
[2018-02-03] MEDS: KETOROLAC TROMETHAMINE INJ/PF 30 MG/1 ML SDV IV SCH (17:46)
[2018-02-04] MEDS: OXYCODONE-ACETAMINOPHEN 5-325 MG TABLET PO PRN ×3 (00:42→19:25)
[2018-02-04] MEDS: DOCUSATE SODIUM 100 MG CAPSULE PO SCH ×3 (01:46→17:54)
[2018-02-04] MEDS: PRENATAL VITAMIN W DHA CAPSULE PO SCH ×2 (01:47→10:19)
[2018-02-04] MEDS: KETOROLAC TROMETHAMINE INJ/PF 30 MG/1 ML SDV IV SCH (02:08)
[2018-02-04 06:26] LABS: HEMATOCRIT 27.2 % (36.0-47.0); MEAN CORPUSCULAR HEMOGLOBIN 28.8 pg (27.0-33.4); MEAN CORPUSCULAR HGB CONC 33.8 g/dL (32.0-36.0); MEAN CORPUSCULAR VOLUME 85 fl (80-97); PLATELET COUNT 177 10^3/uL (150-450); RED BLOOD COUNT 3.18 10^6/uL (3.72-5.28); RED CELL DISTRIBUTION WIDTH 14.2 % (11.5-14.0); WHITE BLOOD COUNT 11.2 10^3/uL (4.0-10.5)
[2018-02-04 06:31] LABS: HEMOGLOBIN 9.2 g/dL (12.0-15.5)
--- NOTE | 2018-02-04 08:41 | Delivery Summary ---
Del Sum A-C Datetime Report Generated by N: 02/04/2018 08:40 DELIVERY PERSONNEL DELIVERY PERSONNEL: [id number] Delivery Doctor:: Johann Stephens MD Delivery Doctor:: Johann Stephens MD Anesthesiologist:: Mario Salazar MD Anesthesiologist:: Mario Salazar MD REEL SYSTEM OPERATOR:: Jesenia Fenton CRNA Labor and Delivery Nurse:: Devyn Farooq RNbig data platform architect Nurse:: Albino Cantu RN Director Orange:: Devyn Farooq RN Director Orange:: Devyn Farooq RN Regional Forester:: Dr. Rangel Karina [place] Nurse:: Judy Flowers RN Student Observers:: Martell Cuevas Supervisor Shuttle Veneering/SHRIMP PACKER: ST Maren Supervisor Shuttle Veneering/SHRIMP PACKER: ST Mitch Supervisor Shuttle Veneering/SHRIMP PACKER: ST Mitch Supervisor Shuttle Veneering/SHRIMP PACKER: ST Maren MATERNAL INFORMATION Delivery Anesthesia: Spinal Medications After Delivery: Pitocin Bolus-Please Comment Meds After Delivery Comment: 40units pitocin Maternal Complications: Other Complication Details: illecit drug use (meth/cocaine/amphetamines) LABOR SUMMARY EDC: 02/24/2018 00:00 No. Babies in Womb: 1 Attempted: No Labor Anesthesia: None LABOR INFORMATION Reason for Induction: Not Applicable Oxytocin: N/A Group B Beta Strep: negative Antibiotics # of Doses: 2 Antibiotics Time of Last Dose: 904 Name of Antibiotic Given: ancef Steroids Given: None Reason Steroids Not Administered: Not Applicable MEMBRANES Membranes Rupture Method: Artificial Rupture of Membranes: 02/03/2018 09:27 Length of Rupture (hr): 0.00 Amniotic Fluid Color: Clear Amniotic Fluid Amount: Scant Amniotic Fluid Odor: Normal STAGES OF LABOR Stage 3 hr: 0 Stage 3 min: 1 VAGINAL DELIVERY Episiotomy: None Laceration #1: None Laceration Extension #1: N/A Laceration Repair: Not Applicable Sponge Count Correct: N/A CSECTION DELIVERY Primary Indication: Breech Presentation Secondary Indication: Other Other Secondary Indication: FABIANA 1 CSection Urgency: Scheduled CSection Incidence: Primary Labor: N/A Elective: Elective CSection Incision: Lower Uterine Transverse BABY A INFORMATION Delivery Date/Time: 02/03/2018 09:27 Method of Delivery: Born in Route : No : N/A Forceps: N/A Vacuum Extraction: N/A Shoulder Dystocia : No PRESENTATION/POSITION BABY A Presentation: Breech Cephalic Presentation: N/A Breech Presentation: E[place]ch PLACENTA INFORMATION BABY A Placenta Delivery Time : 02/03/2018 09:28 Placenta Method of Delivery: Manual Removal Placenta Status: Delivered SCORES BABY A Heart Rate 1 min: >100 bpm Resp Effort 1 min: Good Cry Reflex Irritability 1 min: Cough or Sneeze or Pulls Away Muscle Tone 1 min: Active Motion Color 1 min: Body [place], Extremities Blue SCORE 1 MIN: 9 Heart Rate 5 min: >100 bpm Resp Effort 5 min: Good Cry Reflex Irritability 5 min: Cough or Sneeze or Pulls Away Muscle Tone 5 min: Active Motion Color 5 min: Body [place], Extremities Blue SCORE 5 MIN: 9 INFORMATION BABY A Gestational Age at Delivery: 37.0 Gestational Status: Early Term- 37- 38.6 Weeks Infant Outcome : Liveborn Infant Condition : Stable Sex: Male IDENTIFICATION BABY A ID Band Number: [id number] Mother's Name Verified: Yes Infant RN Verifying : JGrecia Farooq, RN _ T. Pepe, RN WEIGHT/LENGTH BABY A Infant Birthweight (gm): 2760 Infant Weight (lb): 6 Infant Weight (oz): 1 Infant Length (in): 18.75 Infant Length (cm): 47.63 CORD INFORMATION BABY A No. Cord Vessels: 3 Nuchal Cord : N/A Infant Suction: Mouth; Nose ASSESSMENT BABY A Complications: None Physical Findings at Delivery: Within Normal Limits Skin to Skin: Yes Transferred To: Nursery SIGNATURES Signature: with User ID: [email or web address]
--- NOTE | 2018-02-04 11:14 | PDOC PROGRESS REPORT ---
Subjective-OB Progress Note for:: 02/04/18 Subjective: Pt doing well, no concerns. Reports light bleeding, reg diet and +flatus, voids without difficulty. Physical Exam (OB) Vital Signs: Temp Pulse Resp BP Pulse Ox 98.5 F 73 18 119/74 96 02/04/18 07:34 02/04/18 07:34 02/04/18 07:34 02/04/18 07:34 02/04/18 07:34 Intake & Output 02/03/18 02/04/18 02/05/18 06:59 06:59 06:59 Intake Total 1000 1075 Output Total 1725 Balance 1000 -650 Weight 59.2 kg - PIH/Pre-Eclampsia Headache: Absent Epigastric Pain: No Visual Changes: No - Dressing Removed: Yes Incision: Well Approximated Closure Type: medipore - Lochia Lochia Amount: Scant < 10 ml Lochia Color: Rubra/Red - Abdomen Description: Soft, Round Hernia Present: No Fundal Description: Firm, Midline Fundal Height: u/u - u/2 Objective-Diagnostic Laboratory: 02/04/18 06:05 02/04/18 06:05 WBC 11.2 H RBC 3.18 L Hgb 9.2 L D Hct 27.2 L MCV 85 MCH 28.8 MCHC 33.8 RDW 14.2 H Plt Count 177 Assessment and Plan(PN) - Assessment and Plan (1) Status post primary low transverse section Is this a current diagnosis for this admission?: Yes (2) Oligohydramnios delivered Is this a current diagnosis for this admission?: Yes (3) Breech presentation delivered Is this a current diagnosis for this admission?: Yes - Time Spent with Patient Time with patient: Less than 15 minutes Medications reviewed and adjusted accordingly: Yes - Disposition Anticipated Discharge: Home Within: within 24 hours
[2018-02-04] MEDS: IBUPROFEN 800 MG TABLET PO SCH ×3 (11:51→23:30)
[2018-02-04 13:40] LABS: CHLAM PCR NOT DETECTED (NOT DETECT); GON PCR NOT DETECTED (NOT DETECT)
[2018-02-05] MEDS: IBUPROFEN 800 MG TABLET PO SCH ×4 (05:51→23:17)
[2018-02-05] MEDS: OXYCODONE-ACETAMINOPHEN 5-325 MG TABLET PO PRN ×3 (09:06→23:15)
[2018-02-05] MEDS: PRENATAL VITAMIN W DHA CAPSULE PO SCH (09:06)
[2018-02-05] MEDS: DOCUSATE SODIUM 100 MG CAPSULE PO SCH ×2 (09:06→17:23)
--- NOTE | 2018-02-05 10:42 | PDOC PROGRESS REPORT ---
Subjective-OB Progress Note for:: 02/05/18 Subjective: Pt doing well, reports light bleeding reg diet and is voiding without difficulty. No concerns. Baby is not going home today. Physical Exam (OB) Vital Signs: Temp Pulse Resp BP Pulse Ox 98.6 F 88 18 102/61 97 02/05/18 07:18 02/05/18 09:04 02/05/18 07:18 02/05/18 09:04 02/05/18 07:18 Intake & Output 02/04/18 02/05/18 02/06/18 06:59 06:59 05:59 Intake Total 1075 1000 Output Total 1725 Balance -650 1000 - Dressing Removed: No - no dressing in place Incision: Open, Well Approximated Closure Type: Surgical Glue - Lochia Lochia Amount: Scant < 10 ml Lochia Color: Rubra/Red - Abdomen Description: Tender, Soft Hernia Present: No Fundal Description: Firm, Midline Fundal Height: u/u - u/2 Objective-Diagnostic Laboratory: 02/04/18 06:05 Assessment and Plan(PN) - Assessment and Plan (1) Status post primary low transverse section Is this a current diagnosis for this admission?: Yes (2) Oligohydramnios delivered Is this a current diagnosis for this admission?: Yes (3) Breech presentation delivered Is this a current diagnosis for this admission?: Yes - Time Spent with Patient Time with patient: Less than 15 minutes Medications reviewed and adjusted accordingly: Yes - Disposition Anticipated Discharge: Home Within: within 24 hours
[2018-02-06] MEDS: IBUPROFEN 800 MG TABLET PO SCH ×2 (05:37→12:14)
[2018-02-06] MEDS: OXYCODONE-ACETAMINOPHEN 5-325 MG TABLET PO PRN (07:30)
[2018-02-06 08:04] VITALS: BP 107/71
[2018-02-06] MEDS: PRENATAL VITAMIN W DHA CAPSULE PO SCH (10:13)
[2018-02-06] MEDS: DOCUSATE SODIUM 100 MG CAPSULE PO SCH (10:13)
--- NOTE | 2018-02-06 10:52 | PDOC DISCHARGE SUMMARY ---
Final Diagnosis Discharge Date: 02/06/18 - Final Diagnosis (1) Status post primary low transverse section Is this a current diagnosis for this admission?: Yes (2) Oligohydramnios delivered Is this a current diagnosis for this admission?: Yes (3) Breech presentation delivered Is this a current diagnosis for this admission?: Yes Discharge Data - Discharge Medication Home Medications: Clindamycin HCl 300 mg PO QID #28 capsule 07/17/17 Ascorbic Acid [Vitamin C 500 mg Tablet] 500 mg PO DAILY 01/27/18 Ferrous Sulfate [Iron] 325 mg PO DAILY 01/27/18 Vits96/Iron Fum/Folic [ Tablet] 1 each PO DAILY 01/27/18 Reason(s) for Admission: Ceasarean Section-Primary, Obstetric Complications Procedures: NST Intrapartum Procedure(s): : Low Cervical, Transverse - Diagnosis Test Laboratory: Temp Pulse Resp BP Pulse Ox 98.5 F 73 18 119/74 96 02/04/18 07:34 02/04/18 07:34 02/04/18 07:34 02/04/18 07:34 02/04/18 07:34 02/02/18 02/02/18 02/04/18 20:28 23:01 06:05 RBC 4.00 3.18 L Hgb 11.5 L 9.2 L D Hct 33.8 L 27.2 L Urine Opiates Screen NEGATIVE - Discharge information/Instructions Discharge Activity: Balance Activity w/Rest, No Lifting Over 10 Pounds, No Lifting/Push/Pulling, Pelvic Rest, No tub bath Discharge Diet: Regular Disposition: HOME, SELF-CARE Follow up with: [facility] in: 5, Days
--- NOTE | 2018-02-06 10:52 | PDOC PROGRESS REPORT ---
Subjective-OB Progress Note for:: 02/06/18 Subjective: Pt doing well, no concerns. She reports light bleeding, reg diet and voiding without difficulty. Bonding with baby. Physical Exam (OB) Vital Signs: Temp Pulse Resp BP Pulse Ox 98.6 F 54 L 16 107/71 98 02/06/18 07:48 02/06/18 07:48 02/06/18 07:48 02/06/18 07:48 02/06/18 07:48 Intake & Output 02/05/18 02/06/18 02/07/18 07:59 06:59 06:59 Intake Total Balance - Dressing Removed: No Incision: Open, Well Approximated Closure Type: Surgical Glue - Abdomen Description: Tender, Soft Hernia Present: No Fundal Description: Firm, Midline Fundal Height: u/u - u/2 Objective-Diagnostic Laboratory: 02/04/18 06:05 Assessment and Plan(PN) - Assessment and Plan (1) Status post primary low transverse section Is this a current diagnosis for this admission?: Yes (2) Oligohydramnios delivered Is this a current diagnosis for this admission?: Yes (3) Breech presentation delivered Is this a current diagnosis for this admission?: Yes - Time Spent with Patient Time with patient: Less than 15 minutes Medications reviewed and adjusted accordingly: Yes - Disposition Anticipated Discharge: Home Within: within 24 hours
[2018-02-09 07:03] LABS: AMPHETAMINE CONFIRMATION UR Positive (.); COCAINE METABOLITE CONFIRM UR Positive (.); METHADONE CONFIRMATION URINE Positive (.)
== END 2018-02-06 12:20 | disposition home or self-care (01) | DRG 786 ==
LOC: LC 19:03 → LR 20:04 → 2S 02-03 12:14
PROVIDERS: ADMIT Obstetrics & Gynecology; ATTEND Obstetrics & Gynecology
PROC: 4A1HXCZ Monitoring of Products of Conception, Cardiac Rate, External Approach (ICD-10-PCS; 2018-02-02)
PROC: 10D00Z1 Extraction of Products of Conception, Low, Open Approach (ICD-10-PCS; principal; 2018-02-03)
DX: O32.1XX0 Maternal care for breech presentation, not applicable or unspecified (principal); O60.14X0 Preterm labor third trimester with preterm delivery third trimester, not applicable or unspecified; O41.03X0 Oligohydramnios, third trimester, not applicable or unspecified; Z3A.36 36 weeks gestation of pregnancy; Z37.0 Single live birth
CPT/HCPCS: 1961; 36415; 80307; 80353; 81005; 85025; 85027; 86592; 86850; 86900; 86901; 87491; 87591; 88307; 94760; 94799; G0480; J0131; J0690; J1885; J2210; J2250; J2270; J2405; J2590; J3010; J3490

== ENCOUNTER 2018-03-07 01:41 | Emergency (ER) | payer MEDICAID ==
[2018-03-07] MEDS ORDERED: KETOROLAC TROMETHAMINE INJ/PF 30 MG/1 ML SDV IV ONE (01:47)
[2018-03-07] MEDS ORDERED: LIDOCAINE 5% (700 MG) TRANSDERMAL ADH..PATCH TP ONE (01:47)
[2018-03-07] MEDS ORDERED: MORPHINE SULFATE 10 MG/ML INJ IV PRN (01:48)
[2018-03-07 02:10] LABS: HEMATOCRIT 39.2 % (36.0-47.0); HEMOGLOBIN 12.9 g/dL (12.0-15.5); MEAN CORPUSCULAR HEMOGLOBIN 28.2 pg (27.0-33.4); MEAN CORPUSCULAR HGB CONC 32.9 g/dL (32.0-36.0); MEAN CORPUSCULAR VOLUME 86 fl (80-97); PLATELET COUNT 299 10^3/uL (150-450); RED BLOOD COUNT 4.57 10^6/uL (3.72-5.28); RED CELL DISTRIBUTION WIDTH 14.7 % (11.5-14.0); WHITE BLOOD COUNT 10.1 10^3/uL (4.0-10.5)
[2018-03-07 02:36] LABS: ANION GAP 13 (5-19); BLOOD UREA NITROGEN 21 mg/dL (7-20); CALCIUM 9.9 mg/dL (8.4-10.2); CARBON DIOXIDE 23 mmol/L (22-30); CHLORIDE 111 mmol/L (98-107); GLUCOSE 99 mg/dL (75-110); POTASSIUM 3.9 mmol/L (3.6-5.0); SODIUM 146.7 mmol/L (137-145)
--- NOTE | 2018-03-07 02:48 | ER Document Report ---
ED General - General TRAVEL OUTSIDE OF THE [place] IN LAST 30 DAYS: No <RILEY MOONEY - Last Filed: 03/07/18 02:45> <ANTONIO TRISTAN - Last Filed: 03/07/18 04:07> - General Stated Complaint: RIGHT FLANK PAIN Time Seen by Provider: 03/07/18 01:47 Notes: Patient is a 32-year-old female without chronic medical problems who presents with acute onset of right flank pain that woke her up from sleep just prior to arrival. She does describe this as a severe, stabbing, constant pain to her right flank. Pain does not radiate. Nothing seems to improve or worsen the pain. No history of similar pains in the past. No history of nephrolithiasis. She has had associated nausea but no vomiting. No fever or constitutional symptoms. She has not contacted her primary physician regarding today's concerns. She does arrive by EMS. (RILEY MOONEY) - Related Data Allergies/Adverse Reactions: tramadol [Tramadol] Allergy (Intermediate, Verified 01/27/18 17:15) Hives Past Medical History - General Information source: Patient - Social History Smoking Status: Never Smoker Frequency of alcohol use: None Drug Abuse: None Lives with: Family Family History: Reviewed & Not Pertinent - Past Medical History Cardiac Medical History: Denies: Hx Heart Attack, Hx Hypertension Pulmonary Medical History: Reports: Hx Bronchitis Denies: Hx Asthma, Hx COPD, Hx Pneumonia Neurological Medical History: Reports: Hx Migraine. Denies: Hx Seizures Renal/ Medical History: Denies: Hx Peritoneal Dialysis Musculoskeletal Medical History: Denies Hx Arthritis - Immunizations Immunizations up to date: Yes Hx Diphtheria, Pertussis, Tetanus Vaccination: Yes <RILEY MOONEY - Last Filed: 03/07/18 02:45> Review of Systems <RILEY MOONEY - Last Filed: 03/07/18 02:45> <ANTONIO TRISTAN - Last Filed: 03/07/18 04:07> - Review of Systems Notes: Constitutional: Negative for fever. HENT: Negative for sore throat. Eyes: Negative for visual changes. Cardiovascular: Negative for chest pain. Respiratory: Negative for shortness of breath. Gastrointestinal: Positive for right flank pain and nausea Genitourinary: Negative for dysuria. Musculoskeletal: Negative for back pain. Skin: Negative for rash. Neurological: Negative for headaches, weakness or numbness. 10 point ROS negative except as marked above and in HPI. (RILEY MOONEY) Physical Exam - Vital signs Interpretation: Normal <RILEY MOONEY - Last Filed: 03/07/18 02:45> <ANTONIO TRISTAN - Last Filed: 03/07/18 04:07> - Vital signs Vitals: Temp Pulse Resp BP Pulse Ox 98.0 F 99 18 129/78 H 99 03/07/18 01:45 03/07/18 01:45 03/07/18 01:45 03/07/18 01:45 03/07/18 01:45 Notes: PHYSICAL EXAMINATION: GENERAL: Appears moderately uncomfortable but in no acute distress HEAD: Atraumatic, normocephalic. EYES: Pupils equal round and reactive to light, extraocular movements intact, sclera anicteric, conjunctiva are normal. ENT: nares patent, oropharynx clear without exudates. Moist mucous membranes. NECK: Normal range of motion, supple without lymphadenopathy LUNGS: Breath sounds clear to auscultation bilaterally and equal. No wheezes rales or rhonchi. HEART: Regular rate and rhythm without murmurs ABDOMEN: Soft, nontender, normoactive bowel sounds. No guarding, no rebound. No masses appreciated. Right CVA tenderness present. EXTREMITIES: Normal range of motion, no pitting or edema. No cyanosis. NEUROLOGICAL: No focal neurological deficits. Moves all extremities spontaneously and on command. PSYCH: Moderately anxious SKIN: Warm, Dry, normal turgor, no rashes or lesions noted. (RILEY MOONEY) Course - Laboratory Result Diagrams: 03/07/18 01:58 03/07/18 01:58 <RILEY MOONEY - Last Filed: 03/07/18 02:45> - Laboratory Result Diagrams: 03/07/18 01:58 03/07/18 01:58 <ANTONIO TRISTAN - Last Filed: 03/07/18 04:07> - Re-evaluation Re-evalutation: 03/07/18 02:45 Patient is a 32-year-old female presenting with right flank pain that woke her from sleep. On exam the patient does have focal right flank tenderness but no other localized areas of abdominal tenderness. No rebound or guarding. No shortness of breath or pleuritic discomfort. Clinical history appears to be most consistent with acute nephrolithiasis versus possible pyelonephritis. Muscular skeletal origin is also on the differential. She is 5 weeks but is not having any vaginal bleeding or discharge. No lower abdominal tenderness to suggest acute pelvic pathology. Will obtain labs, urinalysis and CT abdomen pelvis without contrast given lack of any prior history of kidney stones and a clinical history that is somewhat suggestive of this diagnosis. Pain control will be provided with Toradol. (RILEY MOONEY) - Vital Signs Vital signs: Temp Pulse Resp BP Pulse Ox 98.0 F 99 18 129/78 H 99 03/07/18 01:45 03/07/18 01:45 03/07/18 01:45 03/07/18 01:45 03/07/18 01:45 - Laboratory Laboratory results interpreted by me: 03/07/18 03/07/18 03/07/18 01:58 01:58 02:10 RDW 14.7 H Sodium 146.7 H Chloride 111 H BUN 21 H Ur Leukocyte Esterase LARGE H Discharge <RILEY MOONEY - Last Filed: 03/07/18 02:45> <ANTONIO TRISTAN - Last Filed: 03/07/18 04:07> - Discharge Clinical Impression: Kidney stone Constipation Qualifiers: Constipation type: unspecified constipation type Qualified Code(s): K59.00 - Constipation, unspecified Urinary tract infection Qualifiers: Urinary tract infection type: site unspecified Hematuria presence: without hematuria Qualified Code(s): N39.0 - Urinary tract infection, site not specified Condition: Stable Disposition: HOME, SELF-CARE Additional Instructions: Kidney Stone You are passing or have passed a kidney stone. These stones are usually due to increased calcium or uric acid concentrations in your urine. Stones within the kidney itself are not painful. The pain occurs as the stone leaves the kidney to pass down the long tube, called the ureter, leading to the bladder. If the stone is small, it will usually pass by itself. Most patients can pass the stone at home. You will usually receive medications for pain, nausea or vomiting, and sometimes a medication to assist in passing the kidney stone. However, if the pain is very severe or if vomiting prevents you from taking oral pain medications, you may need to return for further treatment. Drink three or four quarts of fluids per day. You will be given pain medication (if needed) and urine strainers. Strain all your urine to see if the stone passes. If your doctor has asked you to bring the stone in for analysis, return with the stone once it has passed. Return if pain or vomiting become severe, if you develop a high fever, if you are unable to pass your urine, or if other unusual symptoms occur. Urinary Tract Infection Your evaluation indicates that you have a urinary tract infection. This is due to germs growing in the bladder. This is a common problem. This infection usually responds quickly to antibiotics. Your antibiotic should be taken exactly as prescribed. Drink plenty of fluids -- three to four quarts a day. Occasionally, a bladder anesthetic will be prescribed to help stop the feeling of urgency until the antibiotic has a chance to clear the infection. This may cause your urine to be dark orange. Certain urine infections require a culture. If the doctor obtained a culture, the results will be back in two days. You should call to see if a change in treatment is needed. A repeat urinalysis after you finish treatment is often recommended. The physician will let you know if further testing is required. Call the doctor if you develop fever, chills, flank pain, inability to urinate, or blood in the urine. Constipation Constipation is a common problem. It is especially likely as you get older. Constipation is a common cause of abdominal pain, but sometimes causes no symptoms at all. Causes of constipation include certain medications, dehydration, diets, inactivity, and low-fiber intake. Rarely, it can be a symptom of underlying disease. The physician has evaluated you for this. Avoid constipation by eating a diet high in fiber, fruits, and vegetables. Drink plenty of liquids. Get regular exercise. If possible, avoid constipating medicines like narcotic pain medication. Some vitamin tablets can cause constipation. Stool softeners may be needed for difficult cases. An excellent stool softener is Konsyl which is available at [employer], and [employer] drug store. Just add a teaspoon to a glass of pineapple or orange juice daily or twice a day if needed. Laxatives are useful for occasional constipation. You should use them only when necessary. Too-frequent use can make your bowels dependent on them. Some over the counter laxatives available without prescription are: Milk of Magnesia, 1-2 tablespoons twice a day Dulcolax, 5 mg pill or 10 mg suppository. Citrate of Magnesia, 4-5 ounces a day for a day or two For acute constipation, Fleet's Enemas and Dulcolax suppositories are helpful. Chronic, jail use of laxatives or enemas is not a good idea. Your bowel may become dependant on them. You do not need to have a bowel movement every day. Many people do fine with a bowel movement every three or four days. You should call your doctor or return for re-evaluation if you pass blood in the stool, or if you develop fever or increasing abdominal pain. Your passing a small kidney stone. The kidney stone is measuring 1-2 mm. Please take ibuprofen 600 mg every 6 hours. Your urine also appears to be mildly infected. I will start you on an antibiotic for this today and we will send the urine for a culture. You also have a large amount of stool, this is most likely causing your pain. You were given a bottle of magnesium citrate in the emergency department. Please drink a large glass of water as soon as you get home. I would recommend taking MiraLAX 1 capful 1 time daily for the next several days until you are completely cleared out. Follow-up with your primary care doctor in the next 3-5 days for a follow-up. Return to the emergency department if you experience worsening pain or develop a fever. Prescriptions: Cephalexin [Cephalexin 500 MG Tablet] 1 tab PO QID #20 tablet Referrals: MAY MUNOZ FNP-C [Primary Care Provider] - Follow up as needed
[2018-03-07 02:53] LABS: APPEARANCE,URINE SLIGHTLY-CLOUDY; BILIRUBIN,URINE NEGATIVE (NEGATIVE); COLOR,URINE YELLOW; GLUCOSE, URINE NEGATIVE (NEGATIVE); KETONES,URINE NEGATIVE (NEGATIVE); LEUKOCYTE ESTERASE,URINE LARGE (NEGATIVE); NITRITE,URINE NEGATIVE (NEGATIVE); PROTEIN,URINE NEGATIVE (NEGATIVE); URINE SPECIFIC GRAVITY 1.026; UROBILINOGEN,URINE NEGATIVE mg/dL (<2.0)
--- NOTE | 2018-03-07 03:37 | RADIOLOGY REPORT (SQ) ---
EXAM DESCRIPTION: CT ABDOMEN PELVIS WITHOUT IV CONTRAST COMPLETED DATE/TME: 03/07/2018 01:57 CLINICAL HISTORY: 32 years, Female, right flank pain, eval stone COMPARISON: None. TECHNIQUE: 262 Images stored on PACS. All CT scanners at this facility use dose modulation, iterative reconstruction, and/or weight based dosing when appropriate to reduce radiation dose to as low as reasonably achievable (ALARA). [facility]: Dose Right [facility]: CareDose [facility]: Dose Right [facility]: Teradose 4D [facility]: [employer] LIMITATIONS: None. FINDINGS: Limited evaluation of the lung bases is unremarkable. Osseous structures are grossly intact. Limited evaluation of the liver, spleen, adrenal glands, pancreas, left kidney is unremarkable. Gallbladder is present. Punctate 1 to 2 mm nonobstructing right renal calculus. No hydronephrosis. Large amount of stool in the colon. No gross evidence for bowel obstruction. Enlarged, uterus. No free air or free fluid. Normal appendix. IMPRESSION: Nonobstructing 1 to 2 mm right renal calculus. No hydronephrosis. uterus. Abundant stool in the colon. TECHNICAL DOCUMENTATION: Quality ID # [id number]: Final reports with documentation of one or more dose reduction techniques (e.g., Automated exposure control, adjustment of the mA and/or kV according to patient size, use of iterative reconstruction technique) copyright 2010 [employer]- All Rights Reserved
[2018-03-07] MEDS ORDERED: CEPHALEXIN 500 MG CAPSULE PO ONE (03:48)
[2018-03-07] MEDS ORDERED: MAGNESIUM CITRATE 296 ML BOTTLE PO ONE (03:48)
[2018-03-07 04:19] VITALS: BP 107/85
== END 2018-03-07 04:20 | disposition home or self-care (01) ==
LOC: ER 01:41
DX: O86.20 Urinary tract infection following delivery, unspecified (principal); O90.89 Other complications of the puerperium, not elsewhere classified; N20.0 Calculus of kidney; K59.00 Constipation, unspecified; R10.9 Unspecified abdominal pain; R11.0 Nausea; F41.9 Anxiety disorder, unspecified
CPT/HCPCS: 99284; 96374; 96375; 36415; 87086; 84702; 85027; 80048; 81001; 74176; J3490 ×2; J1885; J2270

== ENCOUNTER 2018-03-08 13:31 | Emergency (ER) | payer MEDICAID ==
[2018-03-08] MEDS ORDERED: HYDROMORPHONE HCL INJ/PF 2 MG/ML AMPULE IV ONE ×2 (15:25→15:28)
[2018-03-08] MEDS ORDERED: CEPHALEXIN 500 MG CAPSULE PO ONE (15:26)
[2018-03-08] MEDS ORDERED: ONDANSETRON 4 MG TAB.RAPDIS PO ONE (15:26)
[2018-03-08] MEDS ORDERED: ONDANSETRON HCL INJ/PF 4 MG/2 ML SDV IV ONE (15:28)
[2018-03-08] MEDS ORDERED: NORMAL SALINE 1000 ML 1,000 ML IV ONE (15:29)
--- NOTE | 2018-03-08 15:30 | ER Document Report ---
ED General - General Chief Complaint: Flank Pain Stated Complaint: FLANK PAIN, HEADACHE, DIFFICULTY BREATHING Time Seen by Provider: 03/08/18 15:21 Mode of Arrival: Ambulatory Information source: Patient Notes: 32-year-old female presents with complaint of right flank pain and headache. Patient was seen 36 hours ago and diagnosed with a urinary tract infection and a small right-sided nonobstructing kidney stone. She states that her flank pain improved for approximately 24 hours but returned again today. She states the pain is so severe that it is causing her to have a diffusely located throbbing headache. Patient has not yet filled her antibiotic prescription. Patient has had associated nausea without vomiting. TRAVEL OUTSIDE OF THE [place] IN LAST 30 DAYS: No - HPI Onset: Other Onset/Duration: Gradual, Persistent, Worse Quality of pain: Stabbing, Throbbing Severity: Moderate Associated symptoms: Body/muscle aches, Nausea. denies: Chest pain, Diarrhea, Fever, Vomiting, Shortness of breath Exacerbated by: Movement Relieved by: Denies Similar symptoms previously: Yes Recently seen / treated by doctor: Yes - 03/07/18 - Related Data Allergies/Adverse Reactions: tramadol [Tramadol] Allergy (Intermediate, Verified 03/08/18 15:31) Hives Past Medical History - General Information source: Patient, [facility] Records - Social History Smoking Status: Current Every Day Smoker Cigarette use (# per day): Yes - 10 Chew tobacco use (# tins/day): No Smoking Education Provided: Yes - Smoking cessation counseling was provided for 4 minutes at the bedside Frequency of alcohol use: None Drug Abuse: None Lives with: Family Family History: Reviewed & Not Pertinent Patient has suicidal ideation: No Patient has homicidal ideation: No - Past Medical History Cardiac Medical History: Denies: Hx Heart Attack, Hx Hypertension Pulmonary Medical History: Reports: Hx Bronchitis Denies: Hx Asthma, Hx COPD, Hx Pneumonia Neurological Medical History: Reports: Hx Migraine. Denies: Hx Seizures Renal/ Medical History: Denies: Hx Peritoneal Dialysis Musculoskeletal Medical History: Denies Hx Arthritis - Immunizations Immunizations up to date: Yes Hx Diphtheria, Pertussis, Tetanus Vaccination: Yes Review of Systems - Review of Systems Notes: REVIEW OF SYSTEMS: CONSTITUTIONAL : Denies fever, chills, or sweats. Denies recent illness. Denies weight loss, recent hospitalizations. EENT: Denies visual changes, eye pain. Denies sore throat, oral lesions, difficulty swallowing. CARDIOVASCULAR: Denies chest pain. Denies palpitations. Denies lower extremity edema. RESPIRATORY: Denies cough. Denies shortness of breath, wheezing. GASTROINTESTINAL: Denies abdominal pain or distention. Denies vomiting, or diarrhea. Denies blood in vomitus, stools, or per rectum. Denies black, tarry stools. Denies constipation. GENITOURINARY: Denies difficulty urinating, painful urination, frequency, blood in urine, or vaginal discharge. MUSCULOSKELETAL: Denies neck pain or stiffness. Denies joint pain or swelling. SKIN: Denies rash, lesions or sores. HEMATOLOGIC : Denies easy bruising or bleeding. LYMPHATIC: Denies swollen glands. NEUROLOGICAL: Denies confusion or altered mental status. Denies loss of consciousness. Denies dizziness or lightheadedness. Denies headache. Denies weakness or paralysis. Denies problems difficulty with ambulation, slurred speech. Denies sensory loss, numbness, or tingling. Denies seizures. PSYCHIATRIC: Denies anxiety or stress. Denies depression, suicidal ideation, or homicidal ideation. Denies visual or auditory hallucinations. Physical Exam - Vital signs Vitals: Temp Pulse Resp BP Pulse Ox 99.1 F 92 20 115/88 H 100 03/08/18 13:44 03/08/18 13:44 03/08/18 13:44 03/08/18 13:44 03/08/18 13:44 Interpretation: Hypertensive - Notes Notes: PHYSICAL EXAMINATION: GENERAL: Appears to be in pain HEAD: Atraumatic, normocephalic. EYES: Pupils equal round and reactive to light, extraocular movements intact, conjunctiva are normal. ENT: Nares patent, oropharynx clear without exudates. Moist mucous membranes. NECK: Normal range of motion, supple without lymphadenopathy LUNGS: Breath sounds clear to auscultation bilaterally and equal. No wheezes rales or rhonchi. HEART: Regular rate and rhythm without murmurs ABDOMEN: Soft, nontender, nondistended abdomen. No guarding, no rebound. No masses appreciated. No CVA tenderness Female : deferred Musculoskeletal: Normal range of motion, no pitting or edema. No cyanosis. NEUROLOGICAL: Cranial nerves grossly intact. Normal speech, normal gait. Normal sensory, motor exams PSYCH: Normal mood, normal affect. SKIN: Warm, Dry, normal turgor, no rashes or lesions noted. Course - Re-evaluation Re-evalutation: Temp Pulse Resp BP Pulse Ox 98.1 F 77 14 108/67 100 03/08/18 17:28 18 17:28 18 17:28 03/08/18 17:28 03/08/18 17:28 03/08/18 16:45 Patient reevaluated after receiving IV fluids, ceftriaxone. She does not report improvement of her pain. 03/08/18 17:16 Patient reports resolution of her pain. She is tolerating fluids. 03/09/18 12:14 32-year-old female presents with complaint of right flank pain and headache. Patient was seen 36 hours ago and diagnosed with a urinary tract infection and a small right-sided nonobstructing kidney stone. She states that her flank pain improved for approximately 24 hours but returned again today. She states the pain is so severe that it is causing her to have a diffusely located throbbing headache. Patient has not yet filled her antibiotic prescription. Patient has had associated nausea without vomiting. Upon arrival vitals were reviewed and within normal limits. Patient is afebrile, normotensive and not hypoxic. She does appear ill but not toxic or dehydrated. Previous medical records and imaging reviewed. She has not followed any of the instructions given to her on her visit to the emergency department yesterday. I do not feel at this time patient needs additional imaging or lab testing. She did receive IV fluids, ceftriaxone, Dilaudid, Zofran, Flomax, Toradol during her ED course. On reevaluation patient reports great improvement of her pain. She is requesting food. Patient tolerating p.o. Encouraged to fill the prescriptions provided to her for her urinary tract infection. Patient was evaluated and treated as appropriate for the patient's presenting symptoms and complaint, with consideration of any critical or life threatening conditions that may be associated with their obtained history and exam as noted above. All results were discussed with patient. Patient provided the opportunity to ask questions, and express concerns. Patient was educated on treatments based on their presumed diagnosis as noted above. At this time we will discharge the patient with return precautions and follow-up recommendations. Verbal discharge instructions given a the bedside. Medication warnings reviewed. Patient is in agreement with this plan and has verbalized understanding of return precautions. After careful consideration I feel that that patient can be safely discharged from the emergency department, they were advised to followup with a primary care physician in 2-3 days. Dictation on this chart was performed using voice recognition software and may result in unintended grammatical, spelling, syntax or errors. 03/09/18 12:16 - Vital Signs Vital signs: Temp Pulse Resp BP Pulse Ox 98.1 F 77 14 108/67 100 03/08/18 17:28 03/08/18 17:28 03/08/18 17:28 03/08/18 17:28 03/08/18 17:28 - Diagnostic Test Radiology reviewed: Image reviewed, Reports reviewed Discharge - Discharge Clinical Impression: Renal colic, Noncompliance with medication regimen Urolithiasis Qualifiers: Urinary calculus location: other lower urinary tract location Qualified Code(s) : N21.8 - Other lower urinary tract calculus Urinary tract infection Qualifiers: Urinary tract infection type: site unspecified Hematuria presence: without hematuria Qualified Code(s): N39.0 - Urinary tract infection, site not specified Condition: Good Disposition: HOME, SELF-CARE Instructions: Kidney Stone ([facility]), Urinary Tract Infection ([facility]) Additional Instructions: Your urine shows findings consistent with a urinary tract infection. Please take all the antibiotics as directed even if your symptoms have improved. Please follow-up with your primary care physician as needed. Return to emergency room if you develop fever >101F, persistent vomiting, become lethargic , have severe pain in your sides, or any other symptoms that are concerning to you. Follow up with your [id number] hours for further care or return to the ED IMMEDIATELY if symptoms worsen or you have any concerns. If you cannot afford to follow up with your primary care physician a list of low cost clinics have been provided at the end of your discharge papers as well. Most prescribed medications have multiple side effects. The safest thing to do is when filling your prescription speak to your pharmacist regarding possible interactions with your normal home medications and over the counter medications such as Ibuprofen, Tylenol, Benadryl. If you experience any symptoms that cause you discomfort or concern you should discontinue the medication immediately and return to the emergency room or call your primary care physician. Prescriptions: Ondansetron [Zofran Odt 4 mg Tablet (6 Tab/ER Disp)] 1 tab PO Q4HP PRN #1 dspk PRN Reason: For Nausea/Vomiting Hydrocodone/Acetaminophen [[place] 5-325 mg Tabs (6 Tab/ER Disp)] 6 tab PO Q6H #1 dspk Tamsulosin HCl [Flomax 0.4 mg Cap.sr] 0.4 mg PO DAILY #7 cap.sr.24h Referrals: MAY MUNOZ FNP-C [Primary Care Provider] - Follow up as needed
[2018-03-08] MEDS ORDERED: TAMSULOSIN HCL 0.4 MG CAP.SR.24H PO ONE (15:34)
[2018-03-08] MEDS ORDERED: CEFTRIAXONE 1 GM/D5W RTU 1 GM/50 ML RTUPB IV ONE (16:30)
[2018-03-08] MEDS ORDERED: KETOROLAC TROMETHAMINE INJ/PF 30 MG/1 ML SDV IV ONE (16:44)
[2018-03-08] MEDS ORDERED: HYDROCODONE/ACETAMINOPHEN 5-325 MG (6 TAB/ER DISP) PO PRN (17:15)
[2018-03-08] MEDS ORDERED: ONDANSETRON ODT 4 MG TAB (6 TAB/ER DISP) PO PRN (17:15)
[2018-03-08 17:30] VITALS: BP 108/67
== END 2018-03-08 17:30 | disposition home or self-care (01) ==
LOC: ER 13:31
DX: N39.0 Urinary tract infection, site not specified (principal); T36.96XA Underdosing of unspecified systemic antibiotic, initial encounter; Z91.128 Patient's intentional underdosing of medication regimen for other reason; Z91.14 Patient's other noncompliance with medication regimen; N20.0 Calculus of kidney; R51 Headache; R10.9 Unspecified abdominal pain; R11.0 Nausea; M79.10 Myalgia, unspecified site; Z88.5 Allergy status to narcotic agent; F17.210 Nicotine dependence, cigarettes, uncomplicated; Z71.6 Tobacco abuse counseling
CPT/HCPCS: J1885; J1170; J3490; J2405; J7030; J0696

== ENCOUNTER 2018-07-22 10:32 | Emergency (ER) | payer OTHER, MEDICAID ==
[2018-07-22 11:07] VITALS: BP 111/63
[2018-07-22] MEDS ORDERED: LIDOCAINE 5% (700 MG) TRANSDERMAL ADH..PATCH TP ONE (11:26)
[2018-07-22] MEDS ORDERED: DEXAMETHASONE SOD PHOS INJ 10 MG/1 ML VIAL IM ONE (11:26)
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
== END 2018-07-22 11:43 | disposition home or self-care (01) ==
LOC: ER 10:32
DX: M54.2 Cervicalgia (principal); M54.5 Low back pain; V43.52XA Car driver injured in collision with other type car in traffic accident, initial encounter; F17.200 Nicotine dependence, unspecified, uncomplicated
CPT/HCPCS: 99283; 96372; J1100